=== PATIENT | male | born 1950 | race Caucasian/White ===

== ENCOUNTER → 2022-06-29 10:35 | Outpatient (CLI) | payer BC, SELFPAY ==
--- NOTE | ~2022-06-29 | XR_ITS ---
Right foot Technique: AP and lateral views were obtained. Clinical History: Pain Findings: No acute fracture or dislocation is seen. Osseous alignment is anatomic. Joint spaces are p reserved without erosive or degenerative change. Soft tissues are unremarkable. Impression: Unremarkable right foot radiographs. Reviewed, dictated and finalized at [facility]. MACHINE REPAIRER Impression: Unremarkable right foot radiographs.
== END ==
PROVIDERS: PCP Family Medicine; Visit Provider Family Medicine
DX: M79.671 Pain in right foot (principal)
CPT/HCPCS: 73620

== ENCOUNTER 2022-09-06 13:25 | Emergency (ER) | payer BC, SELFPAY ==
[2022-09-06 13:29] VITALS: BP 175/80; PULSE 75; RESP 12; TEMP 36.2; O2SAT 97
[2022-09-06 14:00] VITALS: PULSE 87; RESP 21; O2SAT 97
[2022-09-06] MEDS: FAMOTIDINE 20 MG/2 ML VIAL IV PUSH (14:30)
[2022-09-06] MEDS: methylPREDNISolone SOD SUCC 125 MG VIAL IV PUSH (14:30)
[2022-09-06 14:40] VITALS: PULSE 66; RESP 17; O2SAT 96
[2022-09-06 14:45] VITALS: PULSE 66; RESP 17; O2SAT 94
[2022-09-06 14:47] VITALS: BP 122/91; PULSE 62; RESP 15; O2SAT 100
[2022-09-06 15:02] VITALS: PULSE 66; RESP 22; O2SAT 96
--- NOTE | 2022-09-06 15:19 | ED.GENADULT ---
HPI - General Adult General Chief complaint: Allergic Reaction Stated complaint: allergic reaction Time Seen by Provider: 09/06/22 13:42 History of Present Illness HPI narrative: 71-year-old male presented the emergency department for evaluation of a worsening allergic reaction. Patient states that on Monday began having intermittent rash with associated hives. Patient did have follow-up with his primary care physician today and was prescribed a Medrol Dosepak. Patient was told that if he had any worsening symptoms he needed to present to the emergency department for evaluation. Patient states prior to arrival he had onset of some right-sided lip swelling and felt that he was having some throat soreness and tightness. Patient did take Benadryl prior to arrival and on examination patient states that his symptoms have improved. Related Data Home Medications Medication Instructions Recorded Confirmed aspirin 81 mg tablet,delayed 81 mg PO DAILY 06/11/19 09/06/22 release multivitamin 1 tablet PO DAILY 06/11/19 09/06/22 Allergies Allergy/AdvReac Type Severity Reaction Status Date / Time hydrochlorothiazide Allergy Unknown Unknown Verified 09/06/22 10:47 Review of Systems Review of Systems: All systems reviewed & are unremarkable except as noted in HPI and below PMFSH Past Medical History Medical History Elevated PSA Family History Family History Mother Family history of primary malignant neoplasm of liver Sibling Family history of malignant neoplasm of ovary Social History Social History Smoking status: Never smoker Second hand tobacco smoke exposure: No Alcohol intake: current Drinks per week: 10 Substance use: never Substance use type: does not use Living arrangements: with family Occupation/Education: retired Gender identity (if verbalized by the patient): Male Sexual Orientation (if Verbalized by the Patient): Straight or Heterosexual Exam Narrative: APPEARANCE: Well appearing, no pain, no distress, well-nourished. HEAD: normocephalic, atraumatic. EYES: PERRLA/EOMI, conjunctivae clear. NOSE: Normal no drainage NECK: Supple. No adenopathy, no masses. RESPIRATORY: Airway patent, respirations nonlabored. Clear to auscultation bilaterally, no rales, rhonchi, wheezing. CARDIOVASCULAR: Regular rate and rhythm without murmurs rubs or gallops. ABDOMINAL: Soft, nontender, nondistended, normal bowel sounds MUSCULOSKELETAL: Moves all extremities. Strength/ROM intact, No edema, No calf tenderness. NEURO: Alert. Cranial nerves II through XII intact. SKIN: Urticarial rash Course Course Emergency Course: Patient does have a Medrol Dosepak that was ordered by his primary care physician. Patient does have Benadryl at home. Patient was treated with additional IV Solu-Medrol and famotidine in the ED. Patient states he does feel improved and is requesting discharge to home. Vital Signs Vital signs: Vital Signs Temperature 97.2 F L 09/06/22 13:29 Pulse Rate 75 09/06/22 13:29 Respiratory Rate 12 09/06/22 13:29 Blood Pressure 175/80 H 09/06/22 13:29 Pulse Oximetry 97 09/06/22 13:29 Oxygen Delivery Room Air 09/06/22 13:29 Temperature 97.2 F L 09/06/22 13:29 Pulse Rate 66 09/06/22 15:02 Respiratory Rate 22 H 09/06/22 15:02 Blood Pressure 122/91 H 09/06/22 14:47 Pulse Oximetry 96 09/06/22 15:02 Oxygen Delivery Room Air 09/06/22 13:29 Medical Decision Making Vital Signs Vital Signs: Vital Signs Temperature 97.2 F L 09/06/22 13:29 Pulse Rate 75 09/06/22 13:29 Respiratory Rate 12 09/06/22 13:29 Blood Pressure 175/80 H 09/06/22 13:29 Pulse Oximetry 97 09/06/22 13:29 Oxygen Delivery Room Air 09/06/22 13:29 Temperature 97.2 F L 09/06/22 13:29 Pulse Rate 66 03
== END 2022-09-06 15:43 | disposition home or self-care (01) ==
PROVIDERS: Emergency Provider Emergency Medicine; PCP Family Medicine
DX: T78.40XA Allergy, unspecified, initial encounter (principal); Z79.82 Long term (current) use of aspirin
CPT/HCPCS: 96374; 96375; 99284; J2930

== ENCOUNTER 2023-04-27 01:43 | Day surgery (SDC) | payer BC, SELFPAY ==
[2023-04-13 14:04] VITALS: BMI 27.0
--- NOTE | 2023-04-26 12:46 | PM.HPGS ---
History of Present Illness History of Present Illness Consent: Risks, benefits, and alternatives have been discussed and questions answered. Patient agrees to proceed with procedure. Chief complaint: neoplasm screening, screening neoplasm of rectum Narrative: Flo Salmon is a 72 year old male Was referred for colon cancer screening. He has had polyps removed on 2 occasions, most recently about 5 years ago. Review of Systems Review of Systems: All systems reviewed & are unremarkable except as noted in HPI and below PMFSH Past Medical History Medical History Elevated PSA Family History Family History Mother Family history of primary malignant neoplasm of liver Sibling Family history of malignant neoplasm of ovary Social History Social History Smoking status: Never smoker Second hand tobacco smoke exposure: No Alcohol intake: current Drinks per week: 20 Substance use: never Substance use type: does not use Living arrangements: with family Occupation/Education: retired Gender identity (if verbalized by the patient): Male Sexual Orientation (if Verbalized by the Patient): Straight or Heterosexual Meds Home Medications and Allergies Home Medications Medication Instructions Recorded Confirmed Type aspirin 81 mg tablet,delayed 81 mg PO DAILY 06/11/19 04/27/23 History release multivitamin 1 tablet PO DAILY 06/11/19 04/27/23 History lisinopril 30 mg tablet See Rx Instructions .Route 11/22/22 04/27/23 Rx .COMPLEX #90 tabs chlorthalidone 25 mg tablet See Rx Instructions .Route 01/09/23 04/27/23 Rx .COMPLEX #45 tabs Allergies Allergy/AdvReac Type Severity Reaction Status Date / Time hydrochlorothiazide Allergy Unknown Unknown Verified 04/27/23 08:48 Exam Resp: Auscultation: clear to auscultation bilaterally Cardio: Rate: regular rate Rhythm: regular rhythm GI: GI Palp: Yes Soft to palpation and No Tenderness to palpation present (GI) Assessment and Plan Assessment and plan (1) Colon cancer screening: Code(s): Z12.11 - Encounter for screening for malignant neoplasm of colon Status: Acute Assessment and Plan: Colonoscopy with possible biopsy or polypectomy or cautery or injection of substances.
[2023-04-27 08:50] VITALS: BP 134/72; PULSE 65; RESP 16; TEMP 35.8; O2SAT 99
[2023-04-27] MEDS: LACTATED RINGERS 1,000 ML 150 ML IV CONT (09:02)
--- NOTE | 2023-04-27 09:15 | P.PNAN_ITS ---
Anes - Initial Pre Proc Eval Procedure: Operation Date: 04/27/23 10:00 Proposed Procedures p Screening Colonoscopy - Brody Leal MD Date/Time: 04/27/23 09:15 Surgeon: Brody Leal MD Pre Op Diagnosis: neoplasm screening, screening neoplasm of rectum Patient Data Age: 72 Gender: M Height: 1.85 m Weight: 91.8 kg Last Vital Signs Temp 96.4 F L 04/27/23 08:50 Pulse 65 04/27/23 08:50 Resp 16 04/27/23 08:50 BP 134/72 04/27/23 08:50 Pulse Ox 99 04/27/23 08:50 O2 Del Method Room Air 04/27/23 08:50 Allergies Allergy/AdvReac Type Severity Reaction Status Date / Time hydrochlorothiazide Allergy Unknown Unknown Verified 04/27/23 08:48 Home Medications Medication Instructions Recorded Confirmed Type aspirin 81 mg tablet,delayed 81 mg PO DAILY 06/11/19 04/27/23 History release multivitamin 1 tablet PO DAILY 06/11/19 04/27/23 History lisinopril 30 mg tablet See Rx Instructions .Route 11/22/22 04/27/23 Rx .COMPLEX #90 tabs chlorthalidone 25 mg tablet See Rx Instructions .Route 01/09/23 04/27/23 Rx .COMPLEX #45 tabs Patient hx anesthesia problems: none Family hx anesthesia problems: none Results Review: All pre-operative results and documents have been reviewed as part of the pre- operative evaluation. PMFSH Past Medical History Medical History Elevated PSA Family History Family History Mother Family history of primary malignant neoplasm of liver Sibling Family history of malignant neoplasm of ovary Social History Social History Smoking status: Never smoker Second hand tobacco smoke exposure: No Alcohol intake: current Drinks per week: 20 Substance use: never Substance use type: does not use Living arrangements: with family Occupation/Education: retired Gender identity (if verbalized by the patient): Male Sexual Orientation (if Verbalized by the Patient): Straight or Heterosexual Anes - Eval Final PreProcedure Day of Procedure 04/27/23 09:15 Patient weight: normal Heart: regular rate and rhythm Lungs: clear to auscultation Airway: Mallampati scale class II Neurological: alert and oriented Last oral intake: >/= 8 hours ASA classification: II Emergent: no Anesthetic plan: proceed Anesthesia type and monitoring: general GIVS and standard monitoring Results Review: All pre-operative results and documents have been reviewed as part of the pre- operative evaluation. Informed Consent: The patient's anesthetic plan and its attendant risks and benefits were discussed with the patient/family/POA. Questions were solicited and answers provided to the satisfaction of the patient/family/POA.
[2023-04-27 10:21] VITALS: BP 97/65; PULSE 60; RESP 20; O2SAT 96
[2023-04-27 10:31] VITALS: BP 100/66; PULSE 65; RESP 18; O2SAT 99
[2023-04-27 10:41] VITALS: BP 109/52; PULSE 63; RESP 23; O2SAT 98
== END 2023-04-27 10:47 | disposition home or self-care (01) ==
PROVIDERS: PCP Family Medicine; Visit Provider Internal Medicine Gastroenterology
PROC: 0DJD8ZZ Inspection of Lower Intestinal Tract, Via Natural or Artificial Opening Endoscopic (ICD-10-PCS; CPT 45378; principal; 2023-04-27 10:00)
DX: Z12.11 Encounter for screening for malignant neoplasm of colon (principal); D12.2 Benign neoplasm of ascending colon; D12.5 Benign neoplasm of sigmoid colon; K57.30 Diverticulosis of large intestine without perforation or abscess without bleeding; K64.4 Residual hemorrhoidal skin tags; Z80.41 Family history of malignant neoplasm of ovary; Z80.0 Family history of malignant neoplasm of digestive organs; Z79.82 Long term (current) use of aspirin
CPT/HCPCS: 45380; 45385; 88305; J2704; J7120